=== PATIENT | female | born 1955 | race Caucasian/White ===

== ENCOUNTER 2020-10-03 05:20 | Day surgery (SDC) | payer OTHER, SELFPAY ==
--- NOTE | 2020-09-19 10:56 | EKG12_ITS ---
Test Reason : PRE SURGERY Blood Pressure : / mmHG Vent. Rate : 062 BPM Atrial Rate : 062 BPM P-R Int : 144 ms QRS Dur : 082 ms QT Int : 426 ms P-R-T Axes : 053 084 040 degrees QTc Int : 432 ms Normal sinus rhythm Nonspecific T wave abnormality Abnormal ECG Confirmed by SHUBHAM KING, WONG ([id number]), food editor LALO BARNETT ([id number] on 09/20/2020 8:22:31 AM Referred By: Omid Lee Confirmed By:WONG JALLOH MD
[2020-09-19 11:33] LABS: Absolute Lymphocyte Count 1.64 X10^3/uL (0.83-4.51); Absolute Neutrophil Count 1.8 X10^3/uL (2.0-7.7); Basophil# 0.03 X10^3/uL; Basophil% 0.8 % (0-1); Eosinophil# 0.09 X10^3/uL; Eosinophils% 2.3 % (0-5); Hematocrit 42.2 % (37-47); Hemoglobin 13.8 g/dL (12.0-15.0); Lymphocyte # 1.64 X10^3/ul (4.0); Lymphocyte % 42.4 % (19-41); Mean Corp Hgb Conc 32.7 g/dL (32-36); Mean Corpuscular Hgb 30.3 pg (27.0-32.0); Mean Corpuscular Volume 92.7 fL (81-99); Mean Platelet Vol. 10.2 fl (6.2-12.0); Monocyte# 0.35 X10^3/uL; NRBC Flagged by Analyzer 0 % (0-5); Neutrophil # 1.76 X10^3/uL (2.7-7.7); Neutrophil % 45.5 % (47-70); Platelet Count 201 K/mm3 (150-450); RBC Distribution Width CV 12.7 % (11.6-14.6); RBC Distribution Width SD 43.2 fl (35.1-43.9); Red Blood Count 4.55 M/mm3 (4.2-5.4); White Blood Count 3.9 K/mm3 (4.4-11.0)
[2020-09-19 12:16] LABS: Anion Gap 3 (5-15); BUN 19 mg/dL (7-18); BUN/Creat Ratio 23.6 RATIO (10-20); Calcium,Total 8.7 mg/dL (8.5-10.1); Chloride 107 mmol/L (98-107); EST Glomerular Filtration Rate 76 mL/min (>60); Est Glom Filt Rate - Afr Amer 92 mL/min (>60); Glucose 84 mg/dL (74-106); Sodium Level 140 mmol/L (136-145)
--- NOTE | 2020-09-19 15:33 | PCM.HP.BLA ---
History and Physical History and Physical [facility] Patient Name: Guillermina Berman : 1955 From: MATI YUAN PA-C DATE OF SURGERY: 10/03/2020 SCHEDULED PROCEDURE: right total hip arthroplasty HISTORY OF PRESENT ILLNESS: Preoperative history and physical exam was performed on September 19, 2020. This is a 65-year-old female who has had ongoing pain for approximately 1 year with regards to her right hip. Pain has been intermittent, aching, sharp, stabbing. Patient has increased pain going up and down stairs and walking. Pain can reach 5/10 with activities. Her pain is primarily associated with weightbearing exercises and activities. She has difficulty with activities of daily living including housework, walking, and mowing the lawn. She gets groin pain and occasional posterior hip and buttock pain. Pain does not awaken her at night. She has tried home exercises and anesthesiologist and critical care without any improvement. She has tried Aleve [id number] every day with improvement. Patient denies previous surgery on the right hip. She has medical history pertinent for thyroid disease and hypercholesterolemia. Denies any recent chest pain, shortness of breath, fevers chills, or recent infections. We are obtaining surgical clearance from the primary care physician Dr. Abisai Ryan. After failing conservative measures and discussing treatment options with Dr. Omid Lee, the patient does wish to proceed with a right total hip arthroplasty. REVIEW OF SYSTEMS: ROS: Const: Denies change in appetite, fever and weight change. CV: Denies chest pain, heart murmur and irregular heartbeat. Resp: Denies cough, pneumonia, shortness of breath, tuberculosis and wheezing. GI: Denies constipation, diarrhea, heartburn, nausea, rectal itching, bloody stools and vomiting. : Denies incontinence. Musculo: Reports trouble walking, but denies leg swelling, pain and weakness. Skin: Denies Raynaud's, history of shingles and tattoo. Neuro: Denies ambulatory dysfunction, dizziness, numbness/tingling and tremor. Psych: Reports anxiety, insomnia and stress. Hiram/Lymph: Denies anemia, bleeding/bruising tendency and past transfusion. Reviewed, no changes. PAST MEDICAL HISTORY: Advance Care Plan: No Advance Directives Effective Date: 08/30/2020 PMH: Medical Problems: Hypercholesterolemia, Thyroid Disease, Arthritis Accidents: None Surgical Hx: Hysterectomy - (2002) Anesthesia Complications: None Assistive Devices: Glasses Reviewed and updated. SOCIAL HISTORY: SH: Marital: .Occupation: Homemaker.Work Status: Homemaker.Hand Dominance: Right-handed. Personal Habits: Cigarette Use: Never Smoked Cigarettes.Smokeless Tobacco: Never Used Smokeless Tobacco.E-Cigarette Use: Never used.Alcohol: Occasionally.Drug Use: Denies Use.Enjoy Exercising: Daily. Reviewed and updated. VITALS: Ht: 63.5 Wt: 170lb Wt k.112 BMI: 29.6 BP: 122/80 Pulse: 72 Resp: 14 T: 96.4 T: 35.8C Pain Level: 1 ALLERGIES: No Known Drug Allergy MEDICATIONS: Oxycodone HCL 5 mg 1-2 tab by mouth every 4 hours, Meloxicam 7.5 mg 1 by mouth twice a day, Promethazine HCL 12.5 mg 1-2 tablets by mouth every 6 hours, Famotidine 20 mg 1 by mouth every day, Fluoxetine HCL 20 mg take one capsule by mouth every day, Magnesium Oxide 2 po qd, [place] Thyroid 1 po qd, Cod Liver Oil 1 po qd, Multivitamin 1 po qd, Flaxseed Oil 1 po qd, Aleve 220 mg 1po qday PRE-OP EXAM: General appearance:NORMAL Other: Eyes: Conjunctivae and lids: NORMAL Pupils: ERR Ears, Nose, Mouth, and Throat: NORMAL Other: Inspection of lips, teeth and gums: NORMAL Other: Neck: Examination of neck: no masses noted. Respiratory: Assessment of respiratory effort: NORMAL Other: Auscultation of lungs: clear to auscultation no wheezes, rhonchi or rales. Cardiovascular: Auscultation of heart: regular rate and rhythm, no murmurs, gallops or rubs. Exam of carotid arteries: NORMAL Other: Gastrointestinal: Exam of abdomen: soft, nontender, nondistended bowel sounds present. PHYSICAL EXAMINATION: Patient walks with an antalgic gait. Leg lengths are equal. Patient has tenderness to palpation over the right lateral hip. Patient has obligatory external rotation with flexion, flexion 85, internal rotation 5, external rotation 25. 4/5 hip strength secondary to pain. Sensation intact to light touch. Neurovascularly intact. IMAGING STUDIES: X-rays of the right hip reveal joint space narrowing, subchondral sclerosis, osteophyte formation consistent with moderate osteoarthritis. There is large cystic changes in the acetabulum. MRI was also obtained of the right hip which is consistent with numerous subchondral cysts in the acetabulum and femoral head associated with subchondral edema in the femoral head. There is also evidence of cartilage erosion consistent with severe osteoarthritis. IMPRESSION: 1. Severe right hip osteoarthritis 2. Hypercholesterolemia 3. Thyroid disease PLAN: Dr. Omid Lee did discuss and review with the patient all treatment options including surgical versus nonsurgical options. Patient does wish to proceed with the above-stated procedure. Potential risks, benefits, and complications of the procedure were discussed in detail including but not limited to , infection, nerve and blood vessel damage, persistent pain, numbness, tingling, paresthesias, blood clot, pulmonary embolism, and requirement for possible further surgery. The patient expressed full understanding and has no further questions for the doctor. Patient does agree to proceed with the above-stated procedure and has signed the surgery consent form. We discussed the current risks associated with COVID 19. This does include the risk of exposure while in the hospital. Patient was reassured local hospitals have low infection rates and are taking all necessary precautions to avoid exposure to patients. In addition, we discussed strategies that can be used to help limit exposure including those that limit the patient's time in the hospital. Also using strategies to limit the patient's need for continued inpatient services after being discharged from the hospital. Patient was notified that we will need to comply with any screening or testing the hospital wishes to perform or that surgery may be delayed for any positive results. This dictation was created using voice recognition software. Phonetic and/or grammatical errors may exist. ___ I have re-examined the patient. There are no clinical changes since date of exam. ___ See progress notes for changes. ___ Dictated on admission Date: Time: Signature:
[2020-09-19 16:06] LABS: Magnesium 2.4 mg/dL (1.6-2.6); Thyroid Stim Hormone (TSH) 4.51 uIU/mL (0.358-3.74)
[2020-10-03] VITALS (11 sets, daily range): BP systolic 92–153; BP diastolic 47–94; PULSE 52–74; RESP 14–18; TEMP 36.1–36.4; O2SAT 94–100; BMI 29.9
[2020-10-03] MEDS: Lactated Ringers 1,000 ML 75 ML IV (06:27)
[2020-10-03] MEDS: Celecoxib 200 MG Capsule 400 MG PO (06:27)
[2020-10-03] MEDS: Lactated Ringers 1,000 ML 999 ML IV ×2 (06:27→09:00)
[2020-10-03] MEDS: Scopolamine 1mg/72hr Patch 1 PATCH TD (06:28)
[2020-10-03] MEDS: Gabapentin 600 MG Tablet PO (06:28)
[2020-10-03] MEDS: Acetaminophen 500 MG Tablet 1000 MG PO ×2 (06:28→14:28)
[2020-10-03 07:15] LABS: Bedside Glucose 88 mg/dL (70-110)
[2020-10-03] MEDS: Cefazolin 2 GM in 0.9% Normal Saline 100 ML IV (07:36)
[2020-10-03] MEDS: dexAMETHasone 10 MG/ML Vial IV (07:44)
--- NOTE | 2020-10-03 08:46 | RAD_ITS ---
STUDY: X-RAY - PELVIS AND RIGHT HIP REASON FOR EXAM: Female, 65 years old. TOTAL ANTERIOR HIP TECHNIQUE: 1 views of the pelvis and hip. COMPARISON: None. FINDINGS: Intraoperative imaging provided for right total hip replacement. There is good alignment. RAD/Hip 1 view with Pelvis IMPRESSION: Status post right hip replacement. There is good alignment. Electronically Signed: Gerardo Harper MD at 8:39 EST , Service support ,
--- NOTE | 2020-10-03 09:20 | PCM.OPRPT ---
Report of Operation Date of Procedure: 10/03/20 Pre-Operative Diagnosis: Right hip primary osteoarthritis Post-Operative Diagnosis: Right hip primary osteoarthritis Surgery/Procedure Performed:: Right minimally invasive direct anterior hip replacement Description of Surgical Findings:: Stable hip with equal leg lengths attendant child activity: Brooklynn Ordonez Type of Anesthesia:: Spinal Anesthesiologist: Cleve Leung Special Medications: 2 g Ancef, 1 g TXA at incision, 1 g TXA closure, 10 mg Decadron, joint cocktail (5 mg Duramorph, 30 mL of 0.5% Ropivicaine, 1000 units of epinephrine, 30 mg of Toradol) Specimen's removed: Bony cuts Estimated Blood Loss (mL): 250 mL Fluids Replaced: 1500 mL crystalloid Description of Procedure: Components used: 1. Accolade 2 Diane femoral stem size 3 127? 2. [place] trident 2 acetabular shell size 48 mm 3. [place] X3 polyethylene MDM outer liner 4. [place] Biolox delta 22.2 mm, 0 mm femoral head 5. [place] MDM liner alpha code D Brief history operative indications: 65yo female who failed conservative measures for their hip osteoarthritis. X-rays were consistent with osteoarthritis including joint space narrowing, osteophyte formation and subchondral cysts. Total hip replacement was discussed with the patient with risks and benefits including but not limited to blood loss, DVTs, PEs, neurovascular damage, dislocation, general risks of anesthesia including loss of life. Patient demonstrated an understanding medical clearance is obtained the patient was consented for surgery. Procedure: On the date of procedure the patient's right hip was marked in the preoperative area. Patient was then taken back to the operating room where anesthesia assumed control of the C-spine and airway and administered anesthetic. Patient was transferred to the operating table and placed in the supine position. The hips were placed at the break of the bed and a sacral bump was placed. The right lower extremity was then prepped out in a sterile fashion using chlorhexidine while the surgeon scrubbed. The PA was vital in the positioning of the patient. Upon reentering the room the right lower extremity was draped in the standard orthopedic fashion and the incision was marked. A timeout was called and everyone agreed upon the side, the site, the procedure be performed, antibody given, and patient's identity. At this time incision was made through skin, subcutaneous tissue, and fat down to fascia. The fascia was then incised and the TFL was retracted laterally. A retractor was placed on the lateral border of the femoral neck. Attention was directed to the inferior portion of the approach and all crossing vessels were identified and appropriately coagulated. A retractor was then placed on the medial portion of the femoral neck. The anterior capsule was then cleared of all soft tissue and then H shaped capsulotomy was made. The retractors were then placed inside the capsule. The femoral neck was identified and a cleanup cut was made. At this time a power corkscrew was used to remove the femoral head. Attention was then turned toward the acetabulum where the soft tissues were appropriately retracted and the acetabulum was sequentially reamed to 48 mm. A 48 mm cup was then selected and impacted into place. Acetabular liner was impacted into place and locking mechanism was verified. The position of the acetabular cup was then verified under live fluoroscopy. Attention was then turned to the femur. Soft tissue releases on the medial and lateral femoral neck were appropriately done, the leg was externally rotated and lateralized. A Roger retractor was placed medially and proximally to the greater trochanter this allowed appropriate visualization and exposure of the femoral canal. Rongeour was then used to remove excess lateral bone. A canal finder and entry broach were used to open the proximal canal. Once we verified we were down the femoral canal we subsequently broached up to a size 3 femur. The appropriate neck was placed in the previously selected head was trialed with a 0 mm neck. Traction was pulled and the hip was reduced with internal rotation. Once it was appropriately reduced and stability was checked. There was minimal shuck, equal leg lengths and appropriate stability with hyperextension and external rotation as well as with 90? flexion and internal rotation. Fluoroscopy was then also used to verify the position of the components and leg lengths using the contralateral side for comparison. The trial components were then dislocated the proximal femur was again exposed and the components were removed from the wound. The final components were verified and opened. The wound was copiously irrigated out with normal saline. The acetabulum was checked for any residual debris. The final components were placed and impacted. Traction and internal rotation were again used to reduce the hip. After adequate reduction the hip remained stable with appropriate leg lengths. The final components were once again checked with live fluoroscopy and were found to be satisfactory. The wound was then copiously irrigated with normal saline once more, and hemostasis was obtained. Closure was then done using #1 Vicryl runner to close the fascia. A 2-0 vicryl interuppted sutures were used to close the subcutaneous skin. A 3-0 Monocryl and Steri-Strips were used for final skin closure. A Silverlon dressing was placed. Patient was awakened by anesthesia and transferred [facility]. Patient was then transferred to the PACU for recovery. Postoperative plan: Patient will get 24 hours postop antibiotics. Patient will get in-house physical therapy and will be weight-bear as tolerated. Patient will follow up in office in 2 weeks for a wound check and x-rays. Aspirin 81 mg twice daily. - Complications No intraoperative complications - Admit VTE Documentation VTE Present on Admission: No VTE Mechan Device Prophylaxis: SCD's, Thigh High LOVE Hose VTE Pharm Prophylaxis ordered?: Yes
--- NOTE | 2020-10-03 10:05 | RAD_ITS ---
STUDY: X-RAY - PELVIS AND RIGHT HIP REASON FOR EXAM: Postop right hip arthroplasty. TECHNIQUE: 2 views of the pelvis and hip. COMPARISON: Intraoperative images 10/03/2020. FINDINGS: There is postoperative gas in the soft tissues. Normal visualized bilateral iliac wings, sacroiliac joints and visualized sacrum. Normal bilateral superior and inferior pubic rami. Normal pubic symphysis. Normal bilateral ischial tuberosities. There is a right hip arthroplasty without evidence of complication. RAD/Hip Min 2 Views (Portable) IMPRESSION: Uncomplicated right hip arthroplasty. Electronically Signed: Ernesto Snell MD at 10:22 EST Tel , Service support ,
[2020-10-03] MEDS: Cefazolin 1 GM/50 ML BAG IV (10:45)
[2020-10-03] MEDS: Lactated Ringers 1,000 ML 125 ML IV (11:35)
== END 2020-10-03 15:30 | disposition home or self-care (01) ==
LOC: SDC 05:22 → AC 05:23
PROVIDERS: Anesthesiology; PCP Orthopaedic Surgery; Referring Provider Specialist; Visit Provider Specialist
PROC: (CPT 27284; principal; 2020-10-03 07:20)
DX: M16.11 Unilateral primary osteoarthritis, right hip (principal); E07.9 Disorder of thyroid, unspecified; E78.00 Pure hypercholesterolemia, unspecified; Z79.1 Long term (current) use of non-steroidal anti-inflammatories (NSAID); Z79.899 Other long term (current) drug therapy
CPT/HCPCS: 27130; 36415; 73501; 73502; 76000; 80048; 82962; 83735; 84443; 85025; 87081; 87426; 93005; 97162; C1776; C9803; J7120; J2405

== ENCOUNTER 2021-06-05 06:24 | Day surgery (SDC) | payer OTHER, SELFPAY ==
[2021-05-20 13:15] LABS: Absolute Lymphocyte Count 1.98 X10^3/uL (0.83-4.51); Absolute Neutrophil Count 2.7 X10^3/uL (2.0-7.7); Basophil# 0.03 X10^3/uL; Basophil% 0.6 % (0-1); Eosinophil# 0.04 X10^3/uL; Eosinophils% 0.8 % (0-5); Hematocrit 42.6 % (37-47); Hemoglobin 13.7 g/dL (12.0-15.0); Lymphocyte # 1.98 X10^3/ul (0.83-4.51); Lymphocyte % 39.1 % (19-41); Mean Corp Hgb Conc 32.2 g/dL (32-36); Mean Corpuscular Hgb 29.6 pg (27.0-32.0); Mean Platelet Vol. 9.9 fl (6.2-12.0); Monocyte# 0.36 X10^3/uL; Monocyte% 7.1 % (0-10); NRBC Flagged by Analyzer 0 % (0-5); Neutrophil # 2.65 X10^3/uL (2.7-7.7); Neutrophil % 52.4 % (47-70); Platelet Count 243 K/mm3 (150-450); RBC Distribution Width CV 13.2 % (11.6-14.6); RBC Distribution Width SD 44.2 fl (35.1-43.9); Red Blood Count 4.63 M/mm3 (4.2-5.4); White Blood Count 5.1 K/mm3 (4.4-11.0)
[2021-05-20 13:46] LABS: Albumin, Serum 3.9 g/dL (3.2-5.0); Anion Gap 4 (5-15); BUN 20 mg/dL (7-18); BUN/Creat Ratio 24.3 RATIO (10-20); Chloride 106 mmol/L (98-107); Creatinine, Serum 0.82 mg/dL (0.55-1.02); EST Glomerular Filtration Rate 74 mL/min (>60); Est Glom Filt Rate - Afr Amer 90 mL/min (>60); Glucose 96 mg/dL (74-106); Potassium 4.1 mmol/L (3.5-5.1); Sodium Level 139 mmol/L (136-145)
--- NOTE | 2021-05-21 06:08 | PCM.HP.BLA ---
History and Physical History and Physical [facility] Patient Name: Guillermina Berman : 1955 From: MATI YUAN PA-C DATE OF SURGERY: 06/05/2021 SCHEDULED PROCEDURE: left total hip arthroplasty HISTORY OF PRESENT ILLNESS: Preoperative history and physical exam was performed on May 20, 2021. This is a 66-year-old female who is been having pain in her left hip since January 2021. Patient does have history of a right total hip arthroplasty by Dr. Omid Lee on October 03, 2020. She is doing well from that procedure. Patient's pain in the left hip has been constant. Pain is increased with walking and going up and down stairs. She has pain in the left groin. She does get started pain. Pain does occasionally wake her at night. She has difficulty with activities of daily living including putting on her socks and shoes. Patient has tried conservative measures including nonsteroidal anti-inflammatories of Aleve, Motrin, and Turmeric with no relief in symptoms. She has tried primary care md without any relief in symptoms. She denies previous surgery on the left hip. She currently denies any chest pain, shortness of breath, fevers chills, recent infections. We are obtaining surgical clearance from the primary care physician Dr. Abisai Ryan. After failing conservative measures and discussing all treatment options with Dr. Omid Lee, the patient does wish to proceed with a left total hip arthroplasty. REVIEW OF SYSTEMS: ROS: Const: Denies change in appetite, fever and weight change. CV: Denies chest pain, heart murmur and irregular heartbeat. Resp: Denies cough, pneumonia, shortness of breath, tuberculosis and wheezing. GI: Denies constipation, diarrhea, heartburn, nausea, rectal itching, bloody stools and vomiting. : Denies incontinence. Musculo: Reports trouble walking, but denies leg swelling, pain and weakness. Skin: Denies Raynaud's, history of shingles and tattoo. Neuro: Denies ambulatory dysfunction, dizziness, numbness/tingling and tremor. Psych: Reports anxiety, insomnia and stress. Hiram/Lymph: Denies anemia, bleeding/bruising tendency and past transfusion. Reviewed, no changes. PAST MEDICAL HISTORY: Advance Care Plan: No Advance Directives Effective Date: 08/30/2020 PMH: Medical Problems: Hypercholesterolemia, Thyroid Disease, Arthritis Accidents: None Surgical Hx: Hysterectomy - (2002) Hip Replacement RT - (10/03/2020) ANTERIOR SAW AT [facility] Anesthesia Complications: None Assistive Devices: Glasses Reviewed, no changes. SOCIAL HISTORY: SH: Marital: .Occupation: Homemaker.Work Status: Homemaker.Hand Dominance: Right-handed. Personal Habits: Cigarette Use: Never Smoked Cigarettes.Smokeless Tobacco: Never Used Smokeless Tobacco.E-Cigarette Use: Never used.Alcohol: Occasionally.Drug Use: Denies Use.Enjoy Exercising: Daily. Reviewed, no changes. VITALS: Ht: 62.5 Wt: 167lb Wt k.751 BMI: 30.1 BP: 130/78 Pulse: 73 Resp: 20 T: 97.7 T: 36.5C Pain Level: 2 ALLERGIES: No Known Drug Allergy MEDICATIONS: Oxycodone HCL 5 mg 1-2 tab by mouth every 4 hours, Promethazine HCL 12.5 mg 1-2 tablets by mouth every 6 hours, Famotidine 20 mg 1 by mouth every day, Meloxicam 7.5 mg 1 by mouth twice a day, Fluoxetine HCL 20 mg take one capsule by mouth every day, Magnesium Oxide 2 po qd, [place] Thyroid 1 po qd, Cod Liver Oil 1 po qd, Multivitamin 1 po qd, Flaxseed Oil 1 po qd, Aleve 220 mg 1po qday PRE-OP EXAM: General appearance:NORMAL Other: Eyes: Conjunctivae and lids: NORMAL Pupils: ERR Ears, Nose, Mouth, and Throat: NORMAL Other: Inspection of lips, teeth and gums: NORMAL Other: Neck: Examination of neck: no masses noted. Respiratory: Assessment of respiratory effort: NORMAL Other: Auscultation of lungs: clear to auscultation no wheezes, rhonchi or rales. Cardiovascular: Auscultation of heart: regular rate and rhythm, no murmurs, gallops or rubs. PHYSICAL EXAMINATION: Patient does walk with an antalgic gait. She has tenderness to palpation over the left lateral hip at the greater trochanteric region. Patient has increased pain with any range of motion of the left hip. Left hip flexion 75, internal rotation neutral. Sensation intact to light touch. IMAGING STUDIES: Previous x-rays of the left hip reveal joint space narrowing, subchondral sclerosis, osteophyte formation consistent with severe osteoarthritis. There is been progressive loss of the joint space over time with comparison to previous x-rays. Patient also had previous MRI of the right hip and on the pelvic view from September 2020 did show osteo-edema and cartilage erosion in the left hip. IMPRESSION: 1. Severe left hip osteoarthritis 2. Presence of right total hip arthroplasty 3. Hypercholesterolemia 4. Thyroid disease PLAN: Dr. Omid Lee did discuss and review with the patient all treatment options including surgical versus nonsurgical options. Patient does wish to proceed with the above-stated procedure. Potential risks, benefits, and complications of the procedure were discussed in detail including but not limited to , infection, nerve and blood vessel damage, persistent pain, numbness, tingling, paresthesias, blood clot, pulmonary embolism, and requirement for possible further surgery. The patient expressed full understanding and has no further questions for the doctor. Patient does agree to proceed with the above-stated procedure and has signed the surgery consent form. We discussed the current risks associated with COVID 19. This does include the risk of exposure while in the hospital. Patient was reassured local hospitals have low infection rates and are taking all necessary precautions to avoid exposure to patients. In addition, we discussed strategies that can be used to help limit exposure including those that limit the patient's time in the hospital. Also using strategies to limit the patient's need for continued inpatient services after being discharged from the hospital. Patient was notified that we will need to comply with any screening or testing the hospital wishes to perform or that surgery may be delayed for any positive results. This dictation was created using voice recognition software. Phonetic and/or grammatical errors may exist. ___ I have re-examined the patient. There are no clinical changes since date of exam. ___ See progress notes for changes. ___ Dictated on admission Date: Time: Signature:
[2021-05-21 09:41] LABS: Magnesium 2.6 mg/dL (1.6-2.6); Thyroid Stim Hormone (TSH) 4.71 uIU/mL (0.358-3.74)
[2021-06-05] VITALS (14 sets, daily range): BP systolic 119–158; BP diastolic 61–82; PULSE 45–63; RESP 16; TEMP 35.9–36.4; O2SAT 96–100; BMI 30.8
--- NOTE | 2021-06-05 06:44 | OP.PCM_ITS ---
Report of Operation Date of Procedure: 06/05/21 Pre-Operative Diagnosis: Left hip primary osteoarthritis Post-Operative Diagnosis: Left hip primary osteoarthritis Surgery/Procedure Performed:: Left minimally invasive direct anterior hip replacement Description of Surgical Findings:: Stable hip with equal leg lengths Surgeon: Omid Lee vehicle maintenance technician: Yanci Truong Type of Anesthesia: Spinal Anesthesiologist: Abisai De La Cruz Special Medications: 2 g Ancef, 1 g TXA at incision, 1 g TXA closure, 10 mg Deca dron, joint cocktail (5 mg Duramorph, 30 mL of 0.5% Ropivicaine, 1000 units of epinephrine, 30 mg of Toradol) Specimen's removed: Bony cuts Estimated Blood Loss (mL): 200 Fluids Replaced: 700 mL crystalloid Description of Procedure: Components used: 1. Accolade 2 Pequea femoral stem size 3 127? 2. Diane trident 2 acetabular shell size 48 mm 3. Diane X3 polyethylene MDM 38/22.2 4. Diane Biolox delta 22.2mm, 0mm femoral head 5. Pequea MDM liner alpha code D Brief history operative indications: 66 yo f who failed conservative measures for their hip osteoarthritis. X-rays were consistent with osteoarthritis including joint space narrowing, osteophyte formation and subchondral cysts. Total hip replacement was discussed with the patient with risks and benefits including but not limited to blood loss, DVTs, PEs, neurovascular damage, dislocation, general risks of anesthesia including loss of life. Patient demonstrated an understanding medical clearance is obtained the patient was consented for surgery. Procedure: On the date of procedure the patient's L hip was marked in the preoperative area. Patient was then taken back to the operating room where anesthesia assumed control of the C-spine and airway and administered anesthetic. Patient was transferred to the operating table and placed in the supine position. The hips were placed at the break of the bed and a sacral bump was placed. L The lower extremity was then prepped out in a sterile fashion using chlorhexidine while the surgeon scrubbed. The PA was vital in the positioning of the patient. Upon reentering the room the left lower extremity was draped in the standard orthopedic fashion and the incision was marked. A timeout was called and everyone agreed upon the side, the site, the procedure be performed, antibody given, and patient's identity. At this time incision was made through skin, subcutaneous tissue, and fat down to fascia. The fascia was then incised and the TFL was retracted laterally. A retractor was placed on the lateral border of the femoral neck. Attention was directed to the inferior portion of the approach and all crossing vessels were identified and appropriately coagulated. A retractor was then placed on the medial portion of the femoral neck. The anterior capsule was then cleared of all soft tissue and then H shaped capsulotomy was made. The retractors were then placed inside the capsule. The femoral neck was identified and a cleanup cut was made. At this time a power corkscrew was used to remove the femoral head. Attention was then turned toward the acetabulum where the soft tissues were appropriately retracted and the acetabulum was sequentially reamed to 48 mm. A 48 mm cup was then selected and impacted into place. Acetabular liner was impacted into place and locking mechanism was verified. The position of the acetabular cup was then verified under live fluoroscopy. Attention was then turned to the femur. Soft tissue releases on the medial and lateral femoral neck were appropriately done, the leg was externally rotated and lateralized. A Roger retractor was placed medially and proximally to the greater trochanter this allowed appropriate visualization and exposure of the femoral canal. Rongeour was then used to remove excess lateral bone. A canal finder and entry broach were used to open the proximal canal. Once we verified we were down the femoral canal we subsequently broached up to a size 3 femur. The appropriate neck was placed in the previously selected head was trialed with a 0 mm neck. Traction was pulled and the hip was reduced with internal rotation. Once it was appropriately reduced and stability was checked. There was minimal shuck, equal leg lengths and appropriate stability with hyperextension and external rotation as well as with 90? flexion and internal rotation. Fluoroscopy was then also used to verify the position of the components and leg lengths using the contralateral side for comparison. The trial components were then dislocated the proximal femur was again exposed and the components were removed from the wound. The final components were verified and opened. The wound was copiously irrigated out with normal saline. The acetabulum was checked for any residual debris. The final components were placed and impacted. Traction and internal rotation were again used to reduce the hip. After adequate reduction the hip remained stable with appropriate leg lengths. The final components were once again checked with live fluoroscopy and were found to be satisfactory. The wound was then copiously irrigated with normal saline once more, and hemostasis was obtained. Closure was then done using #1 Vicryl runner to close the fascia. A 2-0 vicryl interuppted sutures were used to close the subcutaneous skin. A 3-0 Monocryl and Steri-Strips were used for final skin closure. A Silverlon dressing was placed. Patient was awakened by anesthesia and transferred to the rproctor. Patient was then transferred to the PACU for recovery. During the course of the procedure the physician geriatric personal care aide (PE) played a vital role. Their intimate knowledge of my steps in the procedure aided in safe and expedient completion of the procedure. The PE played a vital rolls in posit ioning particularly in obtaining the appropriate positioning of the sacral bump. The PE was also vital in the retraction of soft tissues during the exposure and especially the femoral work as this is a vital part of the procedure to prevent complications and fractures. The PE was also vital and protecting soft tissues during times of bony cuts and reaming. He also played a vital role in closure with my direct supervision. The PE was also important during reduction and dislocation of the joint and trials intraoperatively. Postoperative plan: Patient will get 24 hours postop antibiotics. Patient will get in-house physical therapy and will be weight-bear as tolerated. Patient will follow up in office in 2 weeks for a wound check and x-rays. Aspirin 81 mg twice daily. Complications No intraoperative complications Admit VTE Documentation VTE Present on Admission: No VTE Mechan Device Prophylaxis: SCD's and Thigh High LOVE Hose VTE Pharm Prophylaxis ordered?: Yes
[2021-06-05] MEDS: Scopolamine 1mg/72hr Patch 1 PATCH TD (06:45)
[2021-06-05] MEDS: Acetaminophen 500 MG Tablet 1000 MG PO ×2 (07:12→18:15)
[2021-06-05] MEDS: Celecoxib 200 MG Capsule 400 MG PO (07:12)
[2021-06-05] MEDS: Lactated Ringers 1,000 ML 999 ML IV ×2 (07:13→12:42)
[2021-06-05 07:31] LABS: Bedside Glucose 98 mg/dL (70-110)
[2021-06-05] MEDS: Lactated Ringers 1,000 ML 100 ML IV (09:31)
[2021-06-05] MEDS: Cefazolin 2 GM in 0.9% Normal Saline 100 ML IV (09:43)
--- NOTE | 2021-06-05 10:33 | RAD_ITS ---
STUDY: X-RAY - PELVIS AND LEFT HIP REASON FOR EXAM: Intraoperative fluoroscopy for left hip arthroplasty. TECHNIQUE: 4 intraoperative images of the pelvis and hip. COMPARISON: Radiographs 10/03/2020. FINDINGS: There is a left hip arthroplasty without evidence of complication. 5 seconds of fluoroscopy time was used. Electronically Signed: Ernesto Snell MD at 12:39 EDT Tel , Service support , RAD/Hip 1 view with Pelvis
--- NOTE | 2021-06-05 12:00 | RAD_ITS ---
STUDY: X-RAY - PELVIS AND LEFT HIP REASON FOR EXAM: Postoperative evaluation of left hip arthroplasty. TECHNIQUE: 2 views of the pelvis and hip. COMPARISON: Radiographs 10/03/2020. FINDINGS: There is postoperative gas in the soft tissues. There is artifact overlying the left hemipelvis. Normal bilateral superior and inferior pubic rami. Normal pubic symphysis. Normal bilateral ischial tuberosities. There is a left hip arthroplasty without evidence of complication. RAD/Hip Min 2 Views (Portable) IMPRESSION: Uncomplicated left hip arthroplasty. Electronically Signed: Ernesto Snell MD at 12:57 EDT Tel , Service support ,
[2021-06-05] MEDS: Cefazolin 1 GM/50 ML BAG IV (14:00)
[2021-06-05] MEDS: Ketorolac 30 MG/ML Syringe IV (15:26)
--- NOTE | 2021-06-05 15:27 | SUR.PHASEII ---
Patient nausea. Given PACU dose of zofran and scop patch applied. cool cloth to forehead.
== END 2021-06-05 19:15 | disposition home or self-care (01) ==
LOC: SDC 06:25 → AC 06:25
PROVIDERS: Anesthesiology; PCP Orthopaedic Surgery; Referring Provider Specialist; Visit Provider Specialist
PROC: (CPT 27284; principal; 2021-06-05 08:35)
DX: M16.12 Unilateral primary osteoarthritis, left hip (principal); E07.9 Disorder of thyroid, unspecified; E78.00 Pure hypercholesterolemia, unspecified; Z79.1 Long term (current) use of non-steroidal anti-inflammatories (NSAID); Z96.643 Presence of artificial hip joint, bilateral; Z79.899 Other long term (current) drug therapy
CPT/HCPCS: 01214; 27130; 36415; 73501; 73502; 76000; 80048; 82040; 82962; 83735; 84443; 85025; 87081; 87426; 97162; C1776; C9803; J7120; J2405